=== PATIENT | female | born 1985 | race Caucasian/White ===

== ENCOUNTER 2017-09-24 18:31 | Emergency (ER) | payer OTHER ==
[2017-09-24 19:14] VITALS: BP 124/81; PULSE 96; TEMP 98.2; BMI 22.4
--- NOTE | 2017-09-24 19:16 | PDOC ---
Rapid Medical Evaluation Chief Complaint: Vaginal Bleeding Time Seen by Provider: 09/24/17 19:11 Medical Evaluation: Allergies Allergy/AdvReac Type Severity Reaction Status Date / Time No Known Allergies Allergy Verified 09/24/17 19:11 09/24/17 19:13 32 year with previous miscarriages and ectopic c/o vaginal bleeding since 1pm bright red bleeding and reports that she has used 1 pad since then. denies abdominal pain. PE: patient alert crying. A: vaginal bleeding P; Labs, U/S Ua patient to the ER for further management of care, Discharge Disposition - Diagnosis Vaginal bleeding - Referrals - Patient Instructions - Post Discharge Activity
[2017-09-24 20:31] LABS: BASO % 0.5 % (0-2.0); EOS % 0.8 % (0-4.5); HEMATOCRIT 44.7 % (32.4-45.2); HEMOGLOBIN 15.1 GM/dL (10.7-15.3); LYMPH % 29.1 % (8-40); MCH 31.7 pg (25.7-33.7); MCHC 33.7 g/dl (32.0-36.0); MEAN CELL VOLUME 94.2 fl (80-96); MEAN PLT VOLUME 8.7 fl (7.5-11.1); MONO % 7.4 % (3.8-10.2); NEUT % 62.2 % (42.8-82.8); PLATELET COUNT 273 K/MM3 (134-434); RBC 4.75 M/mm3 (3.60-5.2); RDW 13.3 % (11.6-15.6); WHITE BLOOD COUNT 12.6 K/mm3 (4.0-10.0)
[2017-09-24 20:39] LABS: INR 1.04 (0.83-1.09); PROTHROMBIN TIME (PATIENT) 11.8 SEC (9.7-13.0)
--- NOTE | 2017-09-24 20:58 | PDOC ---
History of Present Illness - General Chief Complaint: Vaginal Bleeding Stated Complaint: VAGINAL BLEEDING Time Seen by Provider: 09/24/17 19:11 - History of Present Illness Initial Comments: The patient is a 32F with a history of ectopic at approximately 5 weeks of who presents with 6 hours of vaginal bleeding and non- radiating lower abdominal cramping 09/24/17 21:51 Past History - Past Medical History Allergies/Adverse Reactions: Allergies Allergy/AdvReac Type Severity Reaction Status Date / Time No Known Allergies Allergy Verified 09/24/17 19:11 COPD: No Psychiatric Problems: Yes (DEPRESSION) Other medical history: PCOS - Suicide/Smoking/Psychosocial Hx Smoking History: Former smoker Have you smoked in the past 12 months: Yes Information on smoking cessation initiated: No *Physical Exam - Vital Signs Last Vital Signs Temp Pulse Resp BP Pulse Ox 98.2 F 96 H 18 124/81 100 09/24/17 19:11 09/24/17 19:11 09/24/17 19:11 09/24/17 19:11 09/24/17 19:11 ED Treatment Course - LABORATORY CBC & Chemistry Diagram: 09/24/17 20:22 - ADDITIONAL ORDERS Additional order review: Laboratory Results 09/24/17 09/24/17 20:22 20:22 PT with INR 11.80 INR 1.04 Beta HCG, Quant 145.1 09/24/17 20:22 RBC 4.75 MCV 94.2 MCHC 33.7 RDW 13.3 MPV 8.7 Neutrophils % 62.2 Lymphocytes % 29.1 Monocytes % 7.4 Eosinophils % 0.8 Basophils % 0.5 *DC/Admit/Observation/Transfer Diagnosis at time of Disposition: Vaginal bleeding, Miscarriage - Discharge Dispostion Disposition: HOME Condition at time of disposition: Stable Decision to Admit order: No - Referrals Referrals: Lorelei Murguia MD [Staff Physician] - - Patient Instructions Printed Discharge Instructions: DI for Miscarriage Additional Instructions: You were seen today in the Emergency Department and found to have an active miscarriage. Please review the information provided in the handout at discharge. Also, you will need to have a repeat beta-hCG value 2 days from now. Please follow up with your [facility] in the next 1-3 days. Return to the Emergency Department if you begin to experience fevers/chills, worsening symptoms, or any new concerning symptoms. - Post Discharge Activity
[2017-09-24 21:02] LABS: URINE APPEARANCE CLEAR; URINE BILIRUBIN NEGATIVE (<2.0 mg/dL); URINE COLOR COLORLESS; URINE GLUCOSE (UA) NEGATIVE (NEGATIVE); URINE KETONE NEGATIVE (NEGATIVE); URINE LEUK ESTERASE NEGATIVE (NEGATIVE); URINE NITRITE NEGATIVE (NEGATIVE); URINE PROTEIN NEGATIVE (NEGATIVE); URINE UROBILINOGEN NEGATIVE mg/dL (0.2-1.0)
[2017-09-24] MEDS ORDERED: ACETAMINOPHEN 325 MG TABLET (FP) PO ONE (21:34)
[2017-09-24] MEDS ORDERED: ACETAMINOPHEN 325 MG TABLET (FP) ONE (21:43)
--- NOTE | 2017-09-24 22:02 | PDOC ---
Attending Attestation - Resident Resident Name: Hugo Hernandez - ED Attending Attestation I have performed the following: I have examined & evaluated the patient, The case was reviewed & discussed with the resident, I agree w/resident's findings & plan, Exceptions are as noted - HPI HPI: 09/24/17 22:01 32 yo female states that she is and has had 6 hours of vaginal bleeding - Physicial Exam PE: 09/24/17 22:02 wnwd 32 yo female in mild distress,she is and has vag bleeding. Her last resulted in an ectopic and removal of her tube head ncat neck supple lungs cta b/l cvs [id number] abd no rebound, no guarding pelvic vag bleeding neuro axox3,no gross focal neuro deficits skin warm and dry psych anxious - Medical Decision Making 09/24/17 22:05 bhcg= 145 transvag US no IUP IMP threatened AB, early preg or ectopic preg plan pt to see Dr Marquez in 48 hours for repeat bhcg OR return here for repeat bhcg and ultrasound
--- NOTE | 2017-09-27 07:31 | PDOC ---
Patient Follow-up (Call Back) - Post ED Follow - Up Condition at time of discharge: Stable Disposition at time of original discharge: HOME Reason for Call Back: Abnwl. Microbiology (Urine culture on preliminary report shows lactose fermenting negative bacilli. Patient is currently 6 weeks . Patient had a normal UA and no urinary complaints. Will await final report prior to treatment)
== END 2017-09-24 22:07 | disposition home or self-care (01) ==
LOC: JER 18:31
DX: O26.891 Other specified pregnancy related conditions, first trimester (principal); O02.1 Missed abortion; Z3A.01 Less than 8 weeks gestation of pregnancy
CPT/HCPCS: 36415; 76817-TC; 81003; 81015; 84702; 85025; 85610; 86850; 86900; 86901; 87086; 87186; 99281-25